=== PATIENT | male | born 1965 | race Caucasian/White ===

== ENCOUNTER 2017-05-17 15:00 | Emergency (ER) | payer BC ==
[~2017-05-17] VITALS: Ht 177.8 cm; Wt 147.7 kg
[~2017-05-17 15:00] MED LIST: ALTACE 5MG5 MG PO; AMITIZA24 MCG PO; ANUSOL-HC SUPPO25 MG RC; ASPIRIN 32325 MG/TAB PO; BACTRIM DS 8001 TAB PO; FLEXERIL 1010 MG/TAB PO; LIDODERM 5% PATC1 EA TP; LINZESS290CAP PO; LIORESAL 1010 MG/TAB PO; MS CONTIN 115 MG/TAB PO; NORCO 325 MG-101 TAB PO; NUCYNTA75 MG PO; NUVIGIL150 MG PO; OPANA ER10 MG PO; PRILOSEC 20MG20 MG PO; ROXICODONE 55 MG/TAB PO; TOPROL XL 50MG50 MG PO; ZANAFLEX CAPSULE2 MG PO; ZESTRIL30 MG PO
[2017-05-17 15:03] VITALS: TEMP 97.9
[2017-05-17 15:39] LABS: BASO # 0.1 (0.0-0.2); EOS # 0.5 (0.0-0.7); EOS % 5.1 % (0-4.0); GRAN # 8.2 (1.4-6.5); GRAN % 78.4 % (42.2-75.2); HEMATOCRIT 42.2 % (42.0-52.0); HEMOGLOBIN 13.8 g/dl (13.5-18.0); LYMPH % 9.6 % (20.0-51.0); MEAN CELL VOLUME 90 fl (80.0-100.0); MEAN CORPUSCULAR HEMOGLOBIN 30 pg (27.0-31.0); MEAN CORPUSCULAR HGB CONC 33 g/dl (33.0-37.0); MEAN PLATELET VOLUME 10.7 fl (7.4-10.4); MONO # 0.6 (0.1-0.6); MONO % 5.5 % (1.7-9.3); PLATELET COUNT 328 K/mm3 (130-400); RED BLOOD COUNT 4.67 M/mm3 (4.20-5.60); WHITE BLOOD COUNT 10.4 K/mm3 (4.8-10.8)
[2017-05-17 15:50] LABS: ADJUSTED CALCIUM 9.2 mg/dL (8.4-10.2); ALBUMIN 4.8 gm/dL (3.5-5.0); BILIRUBIN,TOTAL 0.7 mg/dL (0.0-1.0); CALCIUM 9.8 mg/dL (8.4-10.2); CREATININE, serum 0.67 mg/dL (0.66-1.25); POTASSIUM 4.1 mmol/L (3.4-5.0)
[2017-05-17 16:02] LABS: COLLECTION METHOD CLEAN CATCH
[2017-05-17 16:09] LABS: PH 6 (5-8); SQUAMOUS EPITHELIAL None Seen /hpf; URINE APPEARANCE Clear; URINE BACTERIA None Seen /hpf; URINE BILIRUBIN Negative (NEGATIVE); URINE BLOOD 2+ (NEGATIVE); URINE COLOR Straw; URINE GLUCOSE 3+ (NEGATIVE); URINE KETONE Trace (NEGATIVE); URINE LEUKOCYTE ESTERASE Negative (NEGATIVE); URINE PROTEIN(semi-quant) Negative (NEGATIVE); URINE RBC 0-2 /hpf; URINE UROBILINOGEN Negative (NEGATIVE); URINE WBC 0-2 /hpf
[2017-05-17] MEDS ORDERED: PRINIVIL10 MG PO (17:00)
[2017-05-17] MEDS ORDERED: GLUCOPHAGE500 MG/TAB PO (17:00)
[2017-05-17] MEDS ORDERED: ZITHROMAX 250M250 MG PO (17:00)
[2017-05-17] MEDS ORDERED: FREESTYLE PREC1 EAC5 MC (17:12)
[2017-05-17 18:50] VITALS: BP 175/93; PULSE 89
== END 2017-05-17 18:50 | disposition home or self-care (01) ==
LOC: COL.ER 15:00
PROVIDERS: Emergency Medicine
DX: J20.9 Acute bronchitis, unspecified (principal); E11.9 Type 2 diabetes mellitus without complications; I10 Essential (primary) hypertension
CPT/HCPCS: J1885; J7030

== ENCOUNTER 2017-05-25 17:01 | Emergency (ER) | payer SELFPAY ==
[~2017-05-25] VITALS: Ht 177.8 cm; Wt 147.7 kg
[~2017-05-25 17:01] MED LIST changes: +FREESTYLE PREC1 EAC5 MC; +GLUCOPHAGE500 MG/TAB PO; +GLUCOPHAGE850 MG/TAB PO; +PRINIVIL10 MG PO; +ZITHROMAX 250M250 MG PO
[2017-05-25 17:04] VITALS: BP 143/94; TEMP 97.7
[2017-05-25 18:13] LABS: BASO # 0.1 (0.0-0.2); BASO % 0.8 % (0.0-2.0); EOS # 0.5 (0.0-0.7); EOS % 5.4 % (0-4.0); GRAN # 5.9 (1.4-6.5); GRAN % 59.1 % (42.2-75.2); HEMATOCRIT 40.2 % (42.0-52.0); HEMOGLOBIN 13.2 g/dl (13.5-18.0); LYMPH % 29.8 % (20.0-51.0); MEAN CELL VOLUME 92 fl (80.0-100.0); MEAN CORPUSCULAR HEMOGLOBIN 30 pg (27.0-31.0); MEAN CORPUSCULAR HGB CONC 33 g/dl (33.0-37.0); MEAN PLATELET VOLUME 10.8 fl (7.4-10.4); MONO # 0.5 (0.1-0.6); MONO % 4.6 % (1.7-9.3); PLATELET COUNT 322 K/mm3 (130-400); RED BLOOD COUNT 4.37 M/mm3 (4.20-5.60); REDCELL DISTRIBUTION WIDTH-CV 13.4 % (11.5-14.5)
[2017-05-25] MEDS ORDERED: ADVIL200 MG PO (18:17)
[2017-05-25 18:22] LABS: ACETONE,SERUM NEGATIVE
[2017-05-25 18:27] LABS: ALANINE AMINOTRANSFERASE 33 U/L (21-72); ALBUMIN 4.7 gm/dL (3.5-5.0); ALKALINE PHOSPHATASE 112 U/L (50-136); ANION GAP 13 mmol/L (7-16); AST,SGOT 27 U/L (15-37); BILIRUBIN,TOTAL 0.4 mg/dL (0.0-1.0); BLOOD UREA NITROGEN 13 mg/dL (9-20); C-REACTIVE PROTEIN 1.2 mg/dL (0.0-0.9); CALCIUM 9.9 mg/dL (8.4-10.2); CARBON DIOXIDE 28 mmol/L (22-30); CHLORIDE 99 mmol/L (98-107); GLUCOSE 296 mg/dL (74-106); POTASSIUM 3.9 mmol/L (3.4-5.0); SODIUM 139 mmol/L (137-145); TOTAL PROTEIN 7.8 gm/dL (6.4-8.2)
[2017-05-25 18:29] LABS: INFLUENZA A NEGATIVE; INFLUENZA B NEGATIVE
[2017-05-25 18:56] LABS: ERYTHROCYTE SEDIMENTATION RATE 18 mm/hr (0-30)
[2017-05-25 19:24] VITALS: PULSE 91
[2017-05-26] MEDS ORDERED: ZITHROMAX Z PA250 MG PO (18:11)
[2017-05-26] MEDS ORDERED: GLUCOTROL XL5 MG/TAB PO (18:11)
[2017-05-26] MEDS ORDERED: REGLAN 5MG T5 MG/TAB PO (18:11)
== END 2017-05-25 19:27 | disposition home or self-care (01) ==
LOC: COL.ER 17:01
PROVIDERS: Emergency Medicine
DX: E11.65 Type 2 diabetes mellitus with hyperglycemia (principal); G43.909 Migraine, unspecified, not intractable, without status migrainosus; I10 Essential (primary) hypertension; F17.210 Nicotine dependence, cigarettes, uncomplicated; Z79.84 Long term (current) use of oral hypoglycemic drugs
CPT/HCPCS: J1170; J1815; J2405; J7030

== ENCOUNTER → 2017-05-27 | Outpatient (CLI) | payer SELFPAY ==
[~2017-05-27] MED LIST changes: +ADVIL200 MG PO; +GLUCOTROL XL5 MG/TAB PO; +REGLAN 5MG T5 MG/TAB PO; +ZITHROMAX Z PA250 MG PO
== END ==
LOC: SUN.DIA 11:48
DX: E11.40 Type 2 diabetes mellitus with diabetic neuropathy, unspecified (principal); I10 Essential (primary) hypertension; E66.9 Obesity, unspecified; Z68.41 Body mass index [BMI] 40.0-44.9, adult; Z71.3 Dietary counseling and surveillance; Z72.0 Tobacco use
CPT/HCPCS: G0108

== ENCOUNTER 2017-06-06 12:53 | Emergency (ER) | payer SELFPAY ==
[~2017-06-06] VITALS: Ht 177.8 cm; Wt 125.9 kg
[2017-06-06 13:07] VITALS: TEMP 97.8
[2017-06-06] MEDS ORDERED: TYLENOL PM EXTR1 TA1 PO (13:14)
[2017-06-06 18:24] VITALS: BP 151/92; PULSE 87
== END 2017-06-06 18:26 | disposition home or self-care (01) ==
LOC: COL.ER 12:53
DX: G43.909 Migraine, unspecified, not intractable, without status migrainosus (principal); I10 Essential (primary) hypertension; E11.9 Type 2 diabetes mellitus without complications; M79.7 Fibromyalgia; F17.220 Nicotine dependence, chewing tobacco, uncomplicated; Z79.84 Long term (current) use of oral hypoglycemic drugs
CPT/HCPCS: J0780; J1200; J1885; J7030

== ENCOUNTER → 2017-06-17 | Outpatient (CLI) | payer SELFPAY ==
[~2017-06-17] MED LIST changes: +TYLENOL PM EXTR1 TA1 PO
== END ==
LOC: SUN.DIA 06-03 12:20
DX: E11.40 Type 2 diabetes mellitus with diabetic neuropathy, unspecified (principal); Z79.4 Long term (current) use of insulin; I10 Essential (primary) hypertension; E66.9 Obesity, unspecified; Z68.41 Body mass index [BMI] 40.0-44.9, adult; Z71.3 Dietary counseling and surveillance; Z72.0 Tobacco use
CPT/HCPCS: G0108

== ENCOUNTER → 2017-07-01 | Outpatient (CLI) | payer SELFPAY ==
[~2017-07-01] MED LIST changes: +BASAGLAR K100 UNIT/1 SQ; +TESSALON P100 MG/CAP PO; +VENTOLIN0.09 MG IH; +ZESTRIL 20MG TA20 MG PO; +ZOFRAN ODT4 MG PO
== END ==
LOC: SUN.DIA 15:06
DX: E11.40 Type 2 diabetes mellitus with diabetic neuropathy, unspecified (principal); Z79.4 Long term (current) use of insulin; I10 Essential (primary) hypertension; E66.9 Obesity, unspecified; Z68.41 Body mass index [BMI] 40.0-44.9, adult; Z71.3 Dietary counseling and surveillance; Z72.0 Tobacco use
CPT/HCPCS: G0108

== ENCOUNTER 2017-07-05 20:47 | Emergency (ER) | payer SELFPAY ==
[~2017-07-05] VITALS: Ht 177.8 cm; Wt 134.1 kg
[~2017-07-05 20:47] MED LIST changes: -BASAGLAR K100 UNIT/1 SQ; -TESSALON P100 MG/CAP PO; -VENTOLIN0.09 MG IH; -ZESTRIL 20MG TA20 MG PO; -ZOFRAN ODT4 MG PO
[2017-07-05 20:53] VITALS: TEMP 100.4
[2017-07-05] MEDS ORDERED: GLUCOTROL XL5 MG/TAB PO (21:57)
[2017-07-05] MEDS ORDERED: TESSALON P100 MG/CAP PO (22:02)
[2017-07-05] MEDS ORDERED: ZOFRAN ODT4 MG PO (22:02)
[2017-07-05] MEDS ORDERED: VENTOLIN0.09 MG IH (22:03)
[2017-07-05] MEDS ORDERED: ZESTRIL 20MG TA20 MG PO (22:05)
[2017-07-05] MEDS ORDERED: BASAGLAR K100 UNIT/1 SQ (22:05)
[2017-07-05] MEDS ORDERED: GLUCOPHAGE500 MG/TAB PO (22:05)
[2017-07-05 22:32] VITALS: BP 132/82; PULSE 100
== END 2017-07-05 22:36 | disposition home or self-care (01) ==
LOC: COL.ER 20:47
DX: J11.1 Influenza due to unidentified influenza virus with other respiratory manifestations (principal); E11.9 Type 2 diabetes mellitus without complications; I10 Essential (primary) hypertension; J45.909 Unspecified asthma, uncomplicated; F17.210 Nicotine dependence, cigarettes, uncomplicated; Z79.4 Long term (current) use of insulin; Z98.890 Other specified postprocedural states

== ENCOUNTER → 2017-07-28 | Outpatient (CLI) | payer SELFPAY ==
[~2017-07-28] MED LIST changes: +BASAGLAR K100 UNIT/1 SQ; +TESSALON P100 MG/CAP PO; +VENTOLIN0.09 MG IH; +ZESTRIL 20MG TA20 MG PO; +ZOFRAN ODT4 MG PO
== END ==
LOC: SUN.DIA 15:38
DX: E11.40 Type 2 diabetes mellitus with diabetic neuropathy, unspecified (principal); Z79.4 Long term (current) use of insulin; I10 Essential (primary) hypertension; E66.9 Obesity, unspecified; Z68.41 Body mass index [BMI] 40.0-44.9, adult; Z71.3 Dietary counseling and surveillance; Z72.0 Tobacco use
CPT/HCPCS: G0108

== ENCOUNTER 2017-08-06 07:26 | Emergency (ER) | payer SELFPAY ==
[~2017-08-06] VITALS: Ht 177.8 cm; Wt 130.5 kg
[2017-08-06 07:29] VITALS: TEMP 98
[2017-08-06] MEDS ORDERED: ZANAFLEX 4MG TAB4 MG PO (08:13)
[2017-08-06 10:12] VITALS: BP 126/90; PULSE 91
== END 2017-08-06 10:15 | disposition home or self-care (01) ==
LOC: COL.ER 07:26
DX: R51 Headache (principal); I10 Essential (primary) hypertension; E11.9 Type 2 diabetes mellitus without complications; F17.210 Nicotine dependence, cigarettes, uncomplicated; Z79.4 Long term (current) use of insulin
CPT/HCPCS: J1100; J1200; J1885; J2550

== ENCOUNTER → 2017-09-08 | Outpatient (CLI) | payer OTHER ==
[~2017-09-08] MED LIST changes: +ZANAFLEX 4MG TAB4 MG PO
== END ==
LOC: MHCPAIN 10:18
DX: G89.29 Other chronic pain (principal); M47.817 Spondylosis without myelopathy or radiculopathy, lumbosacral region; M50.90 Cervical disc disorder, unspecified, unspecified cervical region; M79.2 Neuralgia and neuritis, unspecified
CPT/HCPCS: G0463

== ENCOUNTER → 2017-12-23 | Outpatient (CLI) | payer OTHER | LOC: COL.LAB 12:12 | DX: Z53.8 Procedure and treatment not carried out for other reasons (principal) ==

== ENCOUNTER → 2017-12-24 | Outpatient (CLI) | payer OTHER ==
[2017-12-24 07:30] LABS: COLLECTION METHOD CLEAN CATCH
[2017-12-24 07:34] LABS: HEMATOCRIT 43.8 % (42.0-52.0); HEMOGLOBIN 14.3 g/dl (13.5-18.0); MEAN CELL VOLUME 90 fl (80.0-100.0); MEAN CORPUSCULAR HEMOGLOBIN 29 pg (27.0-31.0); MEAN CORPUSCULAR HGB CONC 33 g/dl (33.0-37.0); MEAN PLATELET VOLUME 9.8 fl (7.4-10.4); PLATELET COUNT 347 K/mm3 (130-400); RED BLOOD COUNT 4.88 M/mm3 (4.20-5.60); REDCELL DISTRIBUTION WIDTH-CV 14.2 % (11.5-14.5)
[2017-12-24 07:37] LABS: MUCOUS Present /lpf; PH 5 (5-8); SQUAMOUS EPITHELIAL None Seen /hpf; URINE APPEARANCE Clear; URINE BACTERIA None Seen /hpf; URINE BILIRUBIN Negative (NEGATIVE); URINE BLOOD 1+ (NEGATIVE); URINE GLUCOSE Negative (NEGATIVE); URINE KETONE Negative (NEGATIVE); URINE LEUKOCYTE ESTERASE Negative (NEGATIVE); URINE NITRATE Negative (NEGATIVE); URINE PROTEIN(semi-quant) 1+ (NEGATIVE); URINE UROBILINOGEN Negative (NEGATIVE); URINE WBC 0-2 /hpf
[2017-12-24 07:41] LABS: URINE COLOR Yellow
[2017-12-24 07:52] LABS: ALBUMIN 4.2 gm/dL (3.5-5.0); BILIRUBIN,TOTAL 0.5 mg/dL (0.0-1.0); CHOLESTEROL RISK RATIO 7.6; CREATININE, serum 0.73 mg/dL (0.66-1.25); POTASSIUM 3.9 mmol/L (3.4-5.0); TOTAL PROTEIN 7.4 gm/dL (6.4-8.2)
[2017-12-24 08:39] LABS: PSA-TOTAL 0.56 ng/mL (0-4)
== END ==
LOC: COL.LAB 07:04
DX: E11.9 Type 2 diabetes mellitus without complications (principal); I10 Essential (primary) hypertension
CPT/HCPCS: G0103

== ENCOUNTER → 2017-12-30 | Outpatient (CLI) | payer SELFPAY | LOC: SUN.DIA → COL.LAB 11:42 | DX: R05 Cough (principal); Z53.9 Procedure and treatment not carried out, unspecified reason ==

== ENCOUNTER → 2018-01-22 | Outpatient (CLI) | payer SELFPAY | LOC: COL.RAD 10:43 | DX: R05 Cough (principal) ==

== ENCOUNTER → 2018-02-11 | Outpatient (CLI) | payer OTHER | LOC: COL.VAS 08:45 | DX: R06.09 Other forms of dyspnea (principal); R01.1 Cardiac murmur, unspecified; R60.9 Edema, unspecified ==

== ENCOUNTER → 2018-05-27 | Outpatient (CLI) | payer SELFPAY ==
[2018-05-27 11:29] LABS: COLLECTION METHOD CLEAN CATCH
[2018-05-27 11:35] LABS: HEMATOCRIT 44.9 % (42.0-52.0); HEMOGLOBIN 14.7 g/dl (13.5-18.0); MEAN CELL VOLUME 92 fl (80.0-100.0); MEAN CORPUSCULAR HEMOGLOBIN 30 pg (27.0-31.0); MEAN CORPUSCULAR HGB CONC 33 g/dl (33.0-37.0); MEAN PLATELET VOLUME 10.3 fl (7.4-10.4); PLATELET COUNT 354 K/mm3 (130-400); REDCELL DISTRIBUTION WIDTH-CV 14.6 % (11.5-14.5)
[2018-05-27 11:43] LABS: MUCOUS Present /lpf; PH 8 (5-8); SQUAMOUS EPITHELIAL None Seen /hpf; URINE APPEARANCE Clear; URINE BACTERIA None Seen /hpf; URINE BILIRUBIN Negative (NEGATIVE); URINE BLOOD Negative (NEGATIVE); URINE COLOR Yellow; URINE GLUCOSE Negative (NEGATIVE); URINE KETONE Negative (NEGATIVE); URINE LEUKOCYTE ESTERASE Negative (NEGATIVE); URINE NITRATE Negative (NEGATIVE); URINE PROTEIN(semi-quant) Negative (NEGATIVE); URINE UROBILINOGEN Negative (NEGATIVE); URINE WBC 0-2 /hpf
[2018-05-27 11:49] LABS: ALBUMIN 4.5 gm/dL (3.5-5.0); BILIRUBIN,TOTAL 0.4 mg/dL (0.0-1.0); CALCIUM 9.4 mg/dL (8.4-10.2); CHOLESTEROL RISK RATIO 7.6; CREATININE, serum 0.78 mg/dL (0.66-1.25); POTASSIUM 3.8 mmol/L (3.4-5.0)
[2018-05-27 12:19] LABS: PSA-TOTAL 1.5 ng/mL (0-4)
== END ==
LOC: COL.LAB 10:38
PROVIDERS: Nurse Practitioner Family
DX: I10 Essential (primary) hypertension (principal); E11.9 Type 2 diabetes mellitus without complications; R60.0 Localized edema
CPT/HCPCS: G0103

== ENCOUNTER 2018-06-02 13:52 | Emergency (ER) | payer SELFPAY ==
[~2018-06-02] VITALS: Ht 177.8 cm; Wt 136.4 kg
[~2018-06-02 13:52] MED LIST changes: -CYMBALTA 60MG60 MG PO; -NEURONTIN800 MG/TAB PO; -RT ALBUTER2.5 MG/0.5 IH
[2018-06-02 14:03] VITALS: TEMP 98.7
[2018-06-02 15:02] LABS: BASO # 0.1 (0.0-0.2); BASO % 0.7 % (0.0-2.0); EOS # 0.5 (0.0-0.7); EOS % 4.9 % (0-4.0); GRAN # 6.2 (1.4-6.5); GRAN % 57.4 % (42.2-75.2); HEMOGLOBIN 15.1 g/dl (13.5-18.0); LYMPH # 3.2 (1.2-3.4); LYMPH % 29.8 % (20.0-51.0); MEAN CELL VOLUME 91 fl (80.0-100.0); MEAN CORPUSCULAR HEMOGLOBIN 30 pg (27.0-31.0); MEAN CORPUSCULAR HGB CONC 33 g/dl (33.0-37.0); MONO # 0.7 (0.1-0.6); MONO % 6.8 % (1.7-9.3); PLATELET COUNT 344 K/mm3 (130-400); RED BLOOD COUNT 5.05 M/mm3 (4.20-5.60); REDCELL DISTRIBUTION WIDTH-CV 14.6 % (11.5-14.5)
[2018-06-02] MEDS ORDERED: NEURONTIN800 MG/TAB PO (15:02)
[2018-06-02] MEDS ORDERED: CYMBALTA 60MG60 MG PO (15:03)
[2018-06-02 15:14] LABS: ALBUMIN 4.6 gm/dL (3.5-5.0); BILIRUBIN,TOTAL 0.4 mg/dL (0.0-1.0); CALCIUM 9.5 mg/dL (8.4-10.2); CREATININE, serum 0.94 mg/dL (0.66-1.25); POTASSIUM 3.9 mmol/L (3.4-5.0); TOTAL PROTEIN 8.2 gm/dL (6.4-8.2)
[2018-06-02] MEDS ORDERED: ZITHROMAX Z PA250 MG PO (15:51)
[2018-06-02] MEDS ORDERED: RT ALBUTER2.5 MG/0.5 IH (15:51)
[2018-06-02 16:00] VITALS: BP 139/77; PULSE 96
== END 2018-06-02 16:09 | disposition home or self-care (01) ==
LOC: COL.ER 13:52
PROVIDERS: Physician Assistant
DX: J20.9 Acute bronchitis, unspecified (principal); E11.9 Type 2 diabetes mellitus without complications; F17.210 Nicotine dependence, cigarettes, uncomplicated; Z79.4 Long term (current) use of insulin; Z88.5 Allergy status to narcotic agent; J45.909 Unspecified asthma, uncomplicated

== ENCOUNTER → 2018-06-02 | Outpatient (CLI) | payer SELFPAY ==
[~2018-06-02] MED LIST changes: +CYMBALTA 60MG60 MG PO; +NEURONTIN800 MG/TAB PO; +RT ALBUTER2.5 MG/0.5 IH
== END ==
LOC: MHCPAIN 11:46
DX: G89.29 Other chronic pain (principal); M54.12 Radiculopathy, cervical region; M47.812 Spondylosis without myelopathy or radiculopathy, cervical region; R51 Headache; M54.81 Occipital neuralgia; M79.2 Neuralgia and neuritis, unspecified
CPT/HCPCS: G0463

== ENCOUNTER → 2018-06-24 | Outpatient (CLI) | payer SELFPAY ==
[~2018-06-24] MED LIST changes: +CYMBALTA 60MG60 MG PO; +NEURONTIN800 MG/TAB PO; +RT ALBUTER2.5 MG/0.5 IH
== END ==
LOC: COL.RAD 10:09
DX: R05 Cough (principal); R06.02 Shortness of breath
CPT/HCPCS: Q9967

== ENCOUNTER 2018-07-19 06:31 | Emergency (ER) | payer SELFPAY | END 2018-07-19 08:41 | disposition home or self-care (01) | LOC: COL.ER 06:31 | DX: R07.89 Other chest pain (principal); I10 Essential (primary) hypertension; E11.9 Type 2 diabetes mellitus without complications; J44.9 Chronic obstructive pulmonary disease, unspecified; F17.210 Nicotine dependence, cigarettes, uncomplicated ==

== ENCOUNTER 2018-07-20 02:17 | Emergency (ER) | payer SELFPAY ==
[~2018-07-20] VITALS: Ht 177.8 cm; Wt 138.2 kg
[~2018-07-20 02:17] MED LIST changes: +PREDNISONE20 MG PO; +PRINIVIL20 MG PO; +PROAIR HFA0.09 MG/AC IH
[2018-07-20 02:22] VITALS: TEMP 97.2
[2018-07-20] MEDS ORDERED: RT ALBUTER2.5 MG/0.5 IH (02:27)
[2018-07-20] MEDS ORDERED: GLUCOPHAGE500 MG/TAB PO (02:27)
[2018-07-20] MEDS ORDERED: ULTRAM 50MG TAB50 MG PO (02:28)
[2018-07-20] MEDS ORDERED: FLEXERIL 1010 MG/TAB PO (03:17)
[2018-07-20] MEDS ORDERED: NORCO 325 MG-51 TAB PO (03:17)
[2018-07-20] MEDS ORDERED: ZITHROMAX 250M250 MG PO (03:29)
[2018-07-20 04:40] VITALS: BP 157/104; PULSE 93
== END 2018-07-20 04:50 | disposition home or self-care (01) ==
LOC: COL.ER 02:17
DX: S29.011A Strain of muscle and tendon of front wall of thorax, initial encounter (principal); E11.9 Type 2 diabetes mellitus without complications; J44.9 Chronic obstructive pulmonary disease, unspecified; Z79.4 Long term (current) use of insulin; X50.0XXA Overexertion from strenuous movement or load, initial encounter
CPT/HCPCS: J1885; J8540

== ENCOUNTER 2018-07-27 21:27 | Emergency (ER) | payer SELFPAY ==
[~2018-07-27] VITALS: Ht 175.3 cm; Wt 138.2 kg
[~2018-07-27 21:27] MED LIST changes: +NORCO 325 MG-51 TAB PO; +ULTRAM 50MG TAB50 MG PO
[2018-07-27 21:35] VITALS: BP 170/78; TEMP 97.7
[2018-07-28 00:40] LABS: BASO # 0.1 (0.0-0.2); BASO % 0.8 % (0.0-2.0); EOS # 0.3 (0.0-0.7); EOS % 3.9 % (0-4.0); GRAN # 4.1 (1.4-6.5); GRAN % 62.6 % (42.2-75.2); HEMATOCRIT 37.9 % (42.0-52.0); HEMOGLOBIN 12.4 g/dl (13.5-18.0); LYMPH # 1.6 (1.2-3.4); LYMPH % 24.7 % (20.0-51.0); MEAN CELL VOLUME 93 fl (80.0-100.0); MEAN CORPUSCULAR HEMOGLOBIN 30 pg (27.0-31.0); MEAN CORPUSCULAR HGB CONC 33 g/dl (33.0-37.0); MEAN PLATELET VOLUME 9.9 fl (7.4-10.4); MONO # 0.5 (0.1-0.6); MONO % 7.4 % (1.7-9.3); PLATELET COUNT 303 K/mm3 (130-400); RED BLOOD COUNT 4.09 M/mm3 (4.20-5.60); REDCELL DISTRIBUTION WIDTH-CV 14.7 % (11.5-14.5)
[2018-07-28 01:04] LABS: ALANINE AMINOTRANSFERASE 18 U/L (21-72); ALKALINE PHOSPHATASE 78 U/L (50-136); ANION GAP 10 mmol/L (7-16); AST,SGOT 27 U/L (15-37); BILIRUBIN,TOTAL 0.2 mg/dL (0.0-1.0); BLOOD UREA NITROGEN 17 mg/dL (9-20); CALCIUM 9.8 mg/dL (8.4-10.2); CARBON DIOXIDE 26 mmol/L (22-30); CHLORIDE 99 mmol/L (98-107); CREATININE, serum 0.95 mg/dL (0.66-1.25); GLUCOSE 152 mg/dL (74-106); POTASSIUM 3.7 mmol/L (3.4-5.0); SODIUM 134 mmol/L (137-145); TOTAL PROTEIN 7.2 gm/dL (6.4-8.2)
[2018-07-28 01:15] LABS: TROPONIN-I < 0.012 ng/mL (0.000-0.035)
[2018-07-28] MEDS ORDERED: NORCO 325 MG-51 TAB PO (02:58)
[2018-07-28] MEDS ORDERED: FLEXERIL 1010 MG/TAB PO (02:58)
[2018-07-28] MEDS ORDERED: TESSALON P100 MG/CAP PO (02:58)
[2018-07-28 03:34] VITALS: PULSE 87
== END 2018-07-28 03:37 | disposition home or self-care (01) ==
LOC: COL.ER 21:27
PROVIDERS: Emergency Medicine
DX: S22.31XA Fracture of one rib, right side, initial encounter for closed fracture (principal); R05 Cough; M79.7 Fibromyalgia; G43.909 Migraine, unspecified, not intractable, without status migrainosus; E11.9 Type 2 diabetes mellitus without complications; Z79.84 Long term (current) use of oral hypoglycemic drugs; X58.XXXA Exposure to other specified factors, initial encounter
CPT/HCPCS: J1885; Q9967

== ENCOUNTER 2018-08-03 18:55 | Emergency (ER) | payer SELFPAY ==
[~2018-08-03] VITALS: Ht 177.8 cm; Wt 137.7 kg
[2018-08-03 19:17] VITALS: TEMP 98
[2018-08-03] MEDS ORDERED: MEDROL 4MG DOSPA4 MG PO (22:22)
[2018-08-03] MEDS ORDERED: ALBUTEROL0.83 MG/ML IH (22:32)
[2018-08-03 22:49] VITALS: BP 158/93; PULSE 95
== END 2018-08-03 23:00 | disposition home or self-care (01) ==
LOC: COL.ER 18:55
DX: J44.9 Chronic obstructive pulmonary disease, unspecified (principal); I10 Essential (primary) hypertension; F17.210 Nicotine dependence, cigarettes, uncomplicated; Z79.84 Long term (current) use of oral hypoglycemic drugs; Z88.5 Allergy status to narcotic agent

== ENCOUNTER 2019-05-10 16:23 | Emergency (ER) | payer MEDICARE, MEDICAID ==
[~2019-05-10] VITALS: Ht 177.8 cm; Wt 127.3 kg
[~2019-05-10 16:23] MED LIST changes: +ALBUTEROL0.83 MG/ML IH; +MEDROL 4MG DOSPA4 MG PO
[2019-05-10 16:30] VITALS: BP 144/86; TEMP 97.9
[2019-05-10] MEDS ORDERED: HYZAAR 50-12.1 UDTAB (16:45)
[2019-05-10] MEDS ORDERED: NUVIGIL150 MG (16:46)
[2019-05-10 17:28] LABS: BASO # 0.1 (0.0-0.2); BASO % 0.6 % (0.0-2.0); EOS # 0.5 (0.0-0.7); HEMATOCRIT 39.4 % (42.0-52.0); HEMOGLOBIN 12.6 g/dl (13.5-18.0); LYMPH # 2.6 (1.2-3.4); MEAN CELL VOLUME 93 fl (80.0-100.0); MEAN CORPUSCULAR HEMOGLOBIN 30 pg (27.0-31.0); MEAN CORPUSCULAR HGB CONC 32 g/dl (33.0-37.0); MEAN PLATELET VOLUME 9.9 fl (7.4-10.4); MONO # 0.7 (0.1-0.6); PLATELET COUNT 363 K/mm3 (130-400); RED BLOOD COUNT 4.25 M/mm3 (4.20-5.60); REDCELL DISTRIBUTION WIDTH-CV 14.7 % (11.5-14.5)
[2019-05-10 17:49] LABS: CALCIUM 9.7 mg/dL (8.4-10.2); CREATININE, serum 0.87 (0.66-1.25); POTASSIUM 3.8 mmol/L (3.4-5.0)
[2019-05-10] MEDS ORDERED: NORCO 325 MG-51 TAB PO (19:15)
[2019-05-10 19:41] VITALS: PULSE 88
== END 2019-05-10 19:41 | disposition home or self-care (01) ==
LOC: COL.ER 16:23
PROVIDERS: Emergency Medicine
DX: S40.012A Contusion of left shoulder, initial encounter (principal); S30.1XXA Contusion of abdominal wall, initial encounter; I10 Essential (primary) hypertension; J45.909 Unspecified asthma, uncomplicated; G43.909 Migraine, unspecified, not intractable, without status migrainosus; E11.9 Type 2 diabetes mellitus without complications; M79.7 Fibromyalgia; Y04.8XXA Assault by other bodily force, initial encounter; Y92.009 Unspecified place in unspecified non-institutional (private) residence as the place of occurrence of the external cause
CPT/HCPCS: J2060; J7030; Q9967

== ENCOUNTER 2019-05-14 21:48 | Emergency (ER) | payer MEDICARE, MEDICAID ==
[~2019-05-14] VITALS: Ht 177.8 cm; Wt 127.3 kg
[~2019-05-14 21:48] MED LIST changes: +HYZAAR 50-12.1 UDTAB; +NUVIGIL150 MG
[2019-05-14 21:52] VITALS: BP 182/99; TEMP 97.5
[2019-05-14] MEDS ORDERED: LIDODERM 5% PATC1 EA TP (23:31)
[2019-05-14] MEDS ORDERED: FLEXERIL 1010 MG/TAB PO (23:31)
[2019-05-15 00:25] VITALS: PULSE 90
== END 2019-05-15 00:25 | disposition home or self-care (01) ==
LOC: COL.ER 21:48
DX: S30.1XXA Contusion of abdominal wall, initial encounter (principal); M25.512 Pain in left shoulder; M79.7 Fibromyalgia; M62.838 Other muscle spasm; E11.9 Type 2 diabetes mellitus without complications; G43.909 Migraine, unspecified, not intractable, without status migrainosus; Z79.4 Long term (current) use of insulin; F17.210 Nicotine dependence, cigarettes, uncomplicated; Y09 Assault by unspecified means
CPT/HCPCS: J1885

== ENCOUNTER → 2019-11-29 | Outpatient (CLI) | payer MEDICARE, MEDICAID | LOC: ZCOL.LAB 17:07 | DX: R19.7 Diarrhea, unspecified (principal); R43.0 Anosmia; R53.83 Other fatigue; Z20.828 Contact with and (suspected) exposure to other viral communicable diseases ==

== ENCOUNTER 2020-05-24 14:11 | Emergency (ER) | payer MEDICARE, MEDICAID ==
[~2020-05-24] VITALS: Ht 177.8 cm; Wt 111.4 kg
[2020-05-24 14:14] VITALS: TEMP 97.6
[2020-05-24 15:14] LABS: BASO # 0.1 (0.0-0.2); BASO % 0.5 % (0.0-2.0); EOS # 0.1 (0.0-0.7); EOS % 0.7 % (0-4.0); GRAN % 84.5 % (42.2-75.2); HEMATOCRIT 41.9 % (42.0-52.0); HEMOGLOBIN 13.5 g/dl (13.5-18.0); LYMPH # 1.4 (1.2-3.4); LYMPH % 9.7 % (20.0-51.0); MEAN CELL VOLUME 91 fl (80.0-100.0); MEAN CORPUSCULAR HEMOGLOBIN 29 pg (27.0-31.0); MEAN CORPUSCULAR HGB CONC 32 g/dl (33.0-37.0); MEAN PLATELET VOLUME 9.8 fl (7.4-10.4); MONO # 0.6 (0.1-0.6); MONO % 4.2 % (1.7-9.3); PLATELET COUNT 355 K/mm3 (130-400); RED BLOOD COUNT 4.63 M/mm3 (4.20-5.60)
[2020-05-24 15:23] LABS: ALBUMIN 4.1 gm/dL (3.5-5.0); BILIRUBIN,TOTAL 0.3 mg/dL (0.0-1.0); C-REACTIVE PROTEIN 1.1 mg/dL (0.0-0.9); CREATININE, serum 0.87 (0.66-1.25); POTASSIUM 4.1 mmol/L (3.4-5.0); TOTAL PROTEIN 7.3 gm/dL (6.4-8.2)
[2020-05-24 15:47] LABS: COLLECTION METHOD CLEAN CATCH
[2020-05-24 16:00] VITALS: BP 169/95; PULSE 90
[2020-05-24 16:03] LABS: AMORPHOUS CRYSTAL Present /uL; MUCOUS Present /lpf; PH 7 (5-8); SQUAMOUS EPITHELIAL None Seen /hpf; URINE APPEARANCE Cloudy; URINE BACTERIA None Seen /hpf; URINE BILIRUBIN Negative (NEGATIVE); URINE BLOOD Negative (NEGATIVE); URINE COLOR Yellow; URINE GLUCOSE Negative (NEGATIVE); URINE KETONE Negative (NEGATIVE); URINE LEUKOCYTE ESTERASE Negative (NEGATIVE); URINE NITRATE Negative (NEGATIVE); URINE PROTEIN(semi-quant) Negative (NEGATIVE); URINE RBC 0-2 /hpf; URINE UROBILINOGEN Negative (NEGATIVE)
== END 2020-05-24 19:00 | disposition home or self-care (01) ==
LOC: COL.ER 14:11 → EDBD 14:12 → COL.ER 19:00
PROVIDERS: Family Medicine
DX: K43.9 Ventral hernia without obstruction or gangrene (principal); E66.9 Obesity, unspecified; F17.200 Nicotine dependence, unspecified, uncomplicated; Z68.35 Body mass index [BMI] 35.0-35.9, adult; Z88.6 Allergy status to analgesic agent
CPT/HCPCS: Q9967

== ENCOUNTER 2020-11-03 14:15 | Inpatient (IN) | payer MEDICARE, MEDICAID ==
[~2020-11-03] VITALS: Ht 180.3 cm; Wt 109.9 kg
[2020-11-03 15:37] LABS: COLLECTION METHOD CLEAN CATCH
[2020-11-03 15:40] LABS: BASO # 0.1 (0.0-0.2); BASO % 0.4 % (0.0-2.0); EOS # 0.1 (0.0-0.7); EOS % 0.5 % (0-4.0); GRAN # 9.9 (1.4-6.5); GRAN % 81.4 % (42.2-75.2); HEMATOCRIT 39.7 % (42.0-52.0); HEMOGLOBIN 13.1 g/dl (13.5-18.0); LYMPH # 1.3 (1.2-3.4); LYMPH % 10.3 % (20.0-51.0); MEAN CELL VOLUME 88 fl (80.0-100.0); MEAN CORPUSCULAR HEMOGLOBIN 29 pg (27.0-31.0); MEAN CORPUSCULAR HGB CONC 33 g/dl (33.0-37.0); MEAN PLATELET VOLUME 9.9 fl (7.4-10.4); MONO # 0.9 (0.1-0.6); PLATELET COUNT 327 K/mm3 (130-400); RED BLOOD COUNT 4.51 M/mm3 (4.20-5.60); REDCELL DISTRIBUTION WIDTH-CV 13.7 % (11.5-14.5)
[2020-11-03 15:43] LABS: PH 7 (5-8); SQUAMOUS EPITHELIAL None Seen /hpf; URINE APPEARANCE Clear; URINE BACTERIA None Seen /hpf; URINE BILIRUBIN Negative (NEGATIVE); URINE BLOOD 1+ (NEGATIVE); URINE COLOR Straw; URINE GLUCOSE Negative (NEGATIVE); URINE KETONE Negative (NEGATIVE); URINE LEUKOCYTE ESTERASE Negative (NEGATIVE); URINE NITRATE Negative (NEGATIVE); URINE PROTEIN(semi-quant) Negative (NEGATIVE); URINE UROBILINOGEN Negative (NEGATIVE)
[2020-11-03 16:00] LABS: ALBUMIN 3.6 gm/dL (3.5-5.0); BILIRUBIN,TOTAL 0.2 mg/dL (0.0-1.0); CREATININE, serum 1.03 (0.66-1.25); POTASSIUM 3.3 mmol/L (3.4-5.0); TOTAL PROTEIN 6.9 gm/dL (6.4-8.2)
[2020-11-03 16:13] LABS: TROPONIN-I 0.062 ng/mL (0.000-0.035)
[2020-11-03 16:23] LABS: C-REACTIVE PROTEIN 3.5 mg/dL (0.0-0.9)
[2020-11-03 17:08] LABS: PROTHROMBIN TIME 11.1 SECONDS (9.7-12.8)
--- NOTE | 2020-11-03 21:23 | NUR ---
PATIENT ARRIVED TO UNITS FROM ED AROUND 2109. ALERT AND ORIENTEDX 4. C/O ABDOMINAL PAIN 01/01. DENIES NAUSEA/VOMITING. IV TO R AC INFUSING NS. ORIENTED TO ROOM, CALL LIGHT WITHING REACH, BED IN LOW POSITION AND LOCK.
[2020-11-03 21:34] VITALS: BP 166/73; PULSE 82; TEMP 99.8
[2020-11-04] VITALS (12 sets, daily range): BP systolic 113–183; BP diastolic 66–92; PULSE 71–91; TEMP 97.8–98.8
--- NOTE | 2020-11-04 01:28 | NUR ---
Vancomycin Initial Dosing Pharmacy Note Ordering provider: Jerome Fernandez MD Indication/duration: DM foot ulcer\concern for MRSA - 5 days Relevant comorbidities: DM, HTN LABS: WBC = 12.2, T = 99.4 F, SCr = 1.03 Recommendation: Will draw troughs and follow levels. Loading dose: 2 grams Maintenance dose: 1.25 grams every 12 hours Trough goal: 10-15 ug/mL
[2020-11-04 06:28] LABS: BASO # 0.1 (0.0-0.2); BASO % 0.5 % (0.0-2.0); EOS # 0.1 (0.0-0.7); EOS % 0.7 % (0-4.0); GRAN # 8.2 (1.4-6.5); GRAN % 77.1 % (42.2-75.2); HEMATOCRIT 39.8 % (42.0-52.0); HEMOGLOBIN 13.1 g/dl (13.5-18.0); LYMPH # 1.5 (1.2-3.4); LYMPH % 14.1 % (20.0-51.0); MEAN CELL VOLUME 88 fl (80.0-100.0); MEAN CORPUSCULAR HEMOGLOBIN 29 pg (27.0-31.0); MEAN CORPUSCULAR HGB CONC 33 g/dl (33.0-37.0); MONO # 0.7 (0.1-0.6); PLATELET COUNT 319 K/mm3 (130-400); RED BLOOD COUNT 4.51 M/mm3 (4.20-5.60); REDCELL DISTRIBUTION WIDTH-CV 13.9 % (11.5-14.5)
[2020-11-04 06:37] LABS: CREATININE, serum 0.89 (0.66-1.25); POTASSIUM 3.8 mmol/L (3.4-5.0)
[2020-11-04 07:01] LABS: MAGNESIUM 2.2 mg/dL (1.6-2.3)
[2020-11-04 07:21] LABS: TROPONIN-I 0.056 ng/mL (0.000-0.035)
--- NOTE | 2020-11-04 10:43 | NUR ---
D/C Plan: Sw to assist with obtaining halfway needs. Assessment: Sw met with the pt who stated his preference to return home? once medically stable. Pt is currently homeless and lives in his car/tent. Pt is independent on all his ADLs and uses a cane. Pt PCP is Logan Guillaume and [facility] is [facility] and the pt stated that he sometimes has trouble obtaining his medications. Pt does not have a DPOA-HC and is not interested in making one at this time. The pt next of Kin is his son, Pipe Terrell (ph#: [phone]). Pt is possibly having a procedure 11/05 and once discharge pt will need shipping and receiving assistant with obtaining halfway/resources.
--- NOTE | 2020-11-04 15:16 | NUR ---
Pt off the floor for surgery
--- NOTE | 2020-11-04 16:44 | NUR ---
Pt has arrived back to the floor from OR. He is alert and oriented, steady on his feet. He has voided with no difficulty. VSS, ordered him some dinner
--- NOTE | 2020-11-04 18:09 | NUR ---
Pt has had and tolerated a general diet. He asked about going outside to smoke. Informed him that we do not allow smoking on the hospital grounds. He stated that he was going to just check himself out. Informed him that I did not feel that this would be the best choice. Offered him a nicotine patch which he accepted. Pt then asked to go for a walk in the halls. Told him that he would need to stay on the 3rd floor.
--- NOTE | 2020-11-04 19:45 | NUR ---
Called with c/o pain. Rating pain 9/10 to abdomen descirbed as constant ache with sharp intermittent pains. Dilaudid given per dr order. Will monitor.
--- NOTE | 2020-11-04 20:10 | NUR ---
Report received, assumed care for night guard. Assessment complete. A&Ox3. Rating pain 9/10 to abdomen-described as constant ache/throb-dilaudid given per order. Discussed plan of care-HS meds/calling for questions/concerns/pain control/nausea. Verbalizes understanding. Will continue to monitor.
--- NOTE | 2020-11-04 20:40 | NUR ---
Came to desk with reports of "a lot of blood in the toilet." This nurse to room and visualized bright red blood in toilet. States he was trying to have a bowel movement and was pushing and when got up he had bleeding. Denies urinating. States he doesnt believe he is constipated but states he hasnt had a BM in "days." Denies flatus. This nurse examined rectal area and noted several external hemorrhoids with active bleeding. Hospitalist-SONIYA Diane notified and new orders received to start bowel regimen. Orders also intiated for hermorrhoid care. Verbalizes understanding. Will continue to monitor.
--- NOTE | 2020-11-04 22:53 | NUR ---
Called with c/o pain to abdomen as well as nausea. Rating pain 7/10 on pain scale-described as constant throbbing/ache. Spoke with Hospitalist SONIYA Diane. New orders received for phenergan-pt states zofran did not work. Given at this time. WIll monitor.
[2020-11-05] VITALS (11 sets, daily range): BP systolic 114–179; BP diastolic 58–88; PULSE 80–96; TEMP 98.1–98.6
--- NOTE | 2020-11-05 00:50 | NUR ---
Called with c/o pain to middle abdomen-rating pain 8/10 on pain scale-described as constant ache with intermittent throbbing. Dilaudid given per dr crum.
--- NOTE | 2020-11-05 00:54 | NUR ---
IV was pulled out during bathroom break. New IV placed to left hand-22g-x2 attempts.
--- NOTE | 2020-11-05 01:20 | NUR ---
During VS verification noted to have BP of 179/87-verified manually. Hydralazine PRN order given at this time. Will monitor.
--- NOTE | 2020-11-05 03:50 | NUR ---
Called with c/o pain to abdomen. Rating pain 8/10 to abdomen-described as constant ache with intermittent throbbing. Dilaudid given per dr order. Will monitor.
--- NOTE | 2020-11-05 06:29 | NUR ---
Called with c/o of pain to mid abdomen-rating pain 8/10 on pain scale-described as constant throbbing. Dilaudid given per dr crum. Will continue to monitor.
[2020-11-05 06:57] LABS: CALCIUM 8.8 mg/dL (8.4-10.2); CREATININE, serum 1.3 (0.66-1.25); MAGNESIUM 2.1 mg/dL (1.6-2.3); POTASSIUM 4.4 mmol/L (3.4-5.0)
[2020-11-05 07:00] LABS: BASO % 0.1 % (0.0-2.0); HEMATOCRIT 37.8 % (42.0-52.0); HEMOGLOBIN 12.6 g/dl (13.5-18.0); LYMPH # 1.1 (1.2-3.4); LYMPH % 6.7 % (20.0-51.0); MEAN CELL VOLUME 88 fl (80.0-100.0); MEAN CORPUSCULAR HEMOGLOBIN 29 pg (27.0-31.0); MEAN CORPUSCULAR HGB CONC 33 g/dl (33.0-37.0); MEAN PLATELET VOLUME 9.9 fl (7.4-10.4); MONO # 0.6 (0.1-0.6); MONO % 3.6 % (1.7-9.3); PLATELET COUNT 323 K/mm3 (130-400); RED BLOOD COUNT 4.28 M/mm3 (4.20-5.60); REDCELL DISTRIBUTION WIDTH-CV 13.7 % (11.5-14.5)
--- NOTE | 2020-11-05 08:10 | NUR ---
PT HAS FLAT AFFECT, REPORTS PAIN IN ABD 7/10, WANTS PAIN MEDICATION LATER. EDUCATED TO USE CALL LIGHT WHEN PAIN MEDICATION NEEDED. PT AMBULATING IN THE ROOM, STEADY ON FEET, REPORTS PASSING GAS BUT NOT HAVING A BM FOR 4 DAYS, HAVING BLEEDING FROM HEMMORROIDS WHEN STRAINING TO HAVE BM. TOPROL AND MIRALAX HELD FOR SALLIE BUT OTHER MEDICATIONS GIVEN WITH SIP OF WATER. WILL GIVE AFTER PROCEDURE. PT AOX4, ASSESSMENT PERFORMED, ULCER ON R INSIDE OF FOOT NOTED, PT PERFORMING DAILY HYGIENE WHEN LEAVING ROOM. NO OTHER NEEDS AT THIS TIME.
--- NOTE | 2020-11-05 08:30 | NUR ---
Since the patient may be needing homeless jail and resources, Studio Control Operator contacted Filomena at [facility]. She reports they provided assistance with securing housing in June. The patient secured a year lease and knows the landlord personally. Filomena reports the patient at times leaves his housing situation due to not getting along with other people. Filomena reports to contact her regarding the patient if he has questions regarding returning to his home or he can contact her directly. SW to meet with the patient to discuss the above information.
--- NOTE | 2020-11-05 09:12 | NUR ---
PT REPORTING PAIN 01/01, REQUESTED PAIN MEDICATION, GAVE PT DILAUDID AND TYLENOL. CALLED [facility] FOR TIME OF PROCEDURE, STATED SALLIE WOULD NOT BE UNTIL 1200 AND THAT PT COULD HAVE LILLY CRACKSHANNON AND JELLO AT CURRENT TIME. EDUCATED PT ON TIME OF PROCEDURE AND GIVEN LILLY BLANCHE AND JELLEffie.
--- NOTE | 2020-11-05 09:44 | NUR ---
[facility] NOTIFIED NURSING STAFF THAT AFTER 24 HOURS PT IS TECHNICALLY DISCHARGED FROM THEIR SERVICES, IF PT WAS STILL REQUIRING THEIR SERVICES WHEN PT IS MEDICALLY CLEARED WE CAN REQUEST THEIR SERVICES AGAIN.
--- NOTE | 2020-11-05 12:43 | NUR ---
PT BACK FROM [facility], LUNCH IN ROOM. ENTERED PT ROOM AND PT EATING LUNCH, HAS ONLY TAKEN A FEW BITES OF SALAD, GRILLED CHEESE, AND TOMATO SOUP. EDUCATED PT OF NPO STATUS AND WOULD CALL PHYSICIAN TO CLARIFY IF NPO STILL NECESSARY, PT REPLIED WITH "IM STILL GONNA EAT, JUST EAT SLOWLY". EDUCATED PT WITH EATING YOU CAN POSSIBLY DELAY A POSSIBLE HEART CATH IF NEEDED. NOTIFIED PHYSICIAN OF SITUATION.
--- NOTE | 2020-11-05 13:16 | NUR ---
AFTER VISITING PT AGAIN, PT HAD EATEN WHOLE LUNCH TRAY. EDUCATED LUNA BYRNES ON SITUATION.
--- NOTE | 2020-11-05 14:27 | NUR ---
since pt ate lunch, pt is not NPO. will be NPO at midnight if cardiac procedure is required. pt requested maude crackers and coffee, decaff coffee brought in with crackers. r ankle wound dressed with coban and 4x4's. no other needs at this time.
--- NOTE | 2020-11-05 16:01 | NUR ---
Vp Sales met with the patient to review the discharge plan and discuss his living situation. The patient reports that his landlard kicked him out of the home due to his landlord having legal issues and she is not a good landlord. He alleges her legal issues stem from drug issues. The patient was agreeable to trying [facility] once again. SARAI attempted to contact Filomena at [facility], she was gone for the day. SARAI informed the patient that he should contact Filomena as well. He was agreeable.
--- NOTE | 2020-11-05 18:07 | NUR ---
PT CURRENTLY OFF TELE, UNABLE TO FIND PT IN ROOM, SECURITY CALLED TO LOOK FOR PT, TECH ALSO LOOKING FOR PT IN HOSPITAL.
--- NOTE | 2020-11-05 18:10 | NUR ---
ONCOMING LICENSED WEIGHER NURSE SPOTTED PT OUTSIDE ED SMOKING, NOTIFIED SECURITY OF SITUATION.
--- NOTE | 2020-11-05 18:28 | NUR ---
PT BEING DISCHARGED AMA FOR LEAVING FACILITY. PHYSICIAN NOTIFIED OF SITUATION AND WORKING ON DISCHARGE PAPERWORK. PT UPSET ABOUT THIS
[2020-11-05] MEDS ORDERED: DOXYCYCLINE 10100 MG PO (18:30)
[2020-11-05] MEDS ORDERED: TOPROL XL 50MG50 MG PO (18:31)
[2020-11-05] MEDS ORDERED: ZESTRIL 20MG TA20 MG PO (18:31)
[2020-11-05] MEDS ORDERED: ASPIRIN 81M81 MG/TA2 PO (18:31)
[2020-11-05] MEDS ORDERED: FLOMAX 0.40.4 MG/CAP PO (18:31)
[2020-11-05] MEDS ORDERED: LASIX 40MG40 MG/4 ML PO (18:34)
[2020-11-05] MEDS ORDERED: HYDROCORTISONE30 G3 TP (18:35)
[2020-11-05] MEDS ORDERED: KLOR-CON M1515 MEQ PO (18:36)
[2020-11-05] MEDS ORDERED: *Potassium Replaceme MC (18:37)
--- NOTE | 2020-11-05 18:58 | NUR ---
pt removed his own iv while outside, telemetry removed from pt, gave pt sandwich box and pepsi, gave discharge med orders and health summary packet, pt left hospital, no other needs.
--- NOTE | 2020-11-06 08:35 | NUR ---
The patient left AMA in 11/05. Lia Mendoza RN, CM from [facility] contacted this Grant Manager regarding the patient. The patient visited the ED this day for care and left AMA from the ED as well. Lia would to be contacted if the patient return to the ED to ensure he gets to his follow up appointment. Lia states she left word with the [facility] ED as well to contact her. SARAI collaborated the above information with the ED SW.
== END 2020-11-05 19:00 | disposition left against medical advice (07) | DRG 670 ==
LOC: COL.ER 14:15 → SURG 18:25 → COL.ER 18:25 → SURG 18:25
PROVIDERS: Nurse Practitioner Primary Care; Student in an Organized Health Care Education/Training Program; Urology; ADMIT Hospitalist
PROC: 0TC78ZZ Extirpation of Matter from Left Ureter, Via Natural or Artificial Opening Endoscopic (ICD-10-PCS; principal; 2020-11-04 16:00)
DX: N13.2 Hydronephrosis with renal and ureteral calculous obstruction (principal); M19.90 Unspecified osteoarthritis, unspecified site; G40.909 Epilepsy, unspecified, not intractable, without status epilepticus; I10 Essential (primary) hypertension; K59.00 Constipation, unspecified; K64.9 Unspecified hemorrhoids; E11.621 Type 2 diabetes mellitus with foot ulcer; L97.519 Non-pressure chronic ulcer of other part of right foot with unspecified severity; R79.89 Other specified abnormal findings of blood chemistry; E87.5 Hyperkalemia; N17.9 Acute kidney failure, unspecified; D64.9 Anemia, unspecified; R91.1 Solitary pulmonary nodule; N28.1 Cyst of kidney, acquired; Z53.29 Procedure and treatment not carried out because of patient's decision for other reasons; Z20.822 Contact with and (suspected) exposure to COVID-19
CPT/HCPCS: 99223-AI; 99232-AI; A9500; C1769; G0378; J0360; J0690; J0696; J1100; J1170; J1650; J1940; J2405; J2550; J2704; J2785; J3010; J3370; J3475; J7030; J7050; Q9967

== ENCOUNTER 2021-01-20 12:59 | Emergency (ER) | payer MEDICARE, MEDICAID ==
[~2021-01-20] VITALS: Ht 180.3 cm; Wt 104.1 kg
[~2021-01-20 12:59] MED LIST changes: +*Potassium Replaceme MC; +ASPIRIN 81M81 MG/TA2 PO; +DOXYCYCLINE 10100 MG PO; +FLOMAX 0.40.4 MG/CAP PO; +HYDROCORTISONE30 G3 TP; +KLOR-CON M1515 MEQ PO; +LASIX 40MG40 MG/4 ML PO
[2021-01-20 13:00] VITALS: TEMP 98
[2021-01-20 14:01] VITALS: BP 169/103; PULSE 94
== END 2021-01-20 14:02 | disposition home or self-care (01) ==
LOC: COL.ER 12:59
DX: K42.9 Umbilical hernia without obstruction or gangrene (principal); E11.9 Type 2 diabetes mellitus without complications; I10 Essential (primary) hypertension; F17.210 Nicotine dependence, cigarettes, uncomplicated; Z79.899 Other long term (current) drug therapy; Z88.6 Allergy status to analgesic agent

== ENCOUNTER 2021-06-02 14:23 | Emergency (ER) | payer MEDICARE, MEDICAID ==
[~2021-06-02] VITALS: Ht 177.8 cm; Wt 95.5 kg
[2021-06-02 15:13] VITALS: TEMP 97.6
[2021-06-02 16:57] LABS: BASO % 0.3 % (0.0-2.0); EOS # 0.2 K/mm3 (0.0-0.7); EOS % 1.7 % (0.0-4.0); GRAN # 8.5 K/mm3 (1.4-6.5); GRAN % 80.6 % (42.2-75.2); HEMATOCRIT 40.6 % (42.0-52.0); HEMOGLOBIN 13.2 g/dl (13.5-18.0); LYMPH # 1.3 K/mm3 (1.2-3.4); LYMPH % 12.6 % (20.0-51.0); MEAN CELL VOLUME 89 fl (80.0-100.0); MEAN CORPUSCULAR HEMOGLOBIN 29 pg (27-31); MEAN CORPUSCULAR HGB CONC 33 g/dl (33.0-37.0); MEAN PLATELET VOLUME 9.6 fl (7.4-10.4); MONO # 0.5 K/mm3 (0.1-0.6); MONO % 4.5 % (1.7-9.3); PLATELET COUNT 314 K/mm3 (130-400); RED BLOOD COUNT 4.59 M/mm3 (4.20-5.60); REDCELL DISTRIBUTION WIDTH-CV 14.3 % (11.5-14.5)
[2021-06-02 17:14] LABS: ALBUMIN 3.7 gm/dL (3.5-5.0); BILIRUBIN,TOTAL 0.4 mg/dL (0.2-1.2); CALCIUM 8.8 mg/dL (8.4-10.2); CREATININE, serum 1.15 mg/dL (0.72-1.25); POTASSIUM 3.1 mmol/L (3.5-4.5); TOTAL PROTEIN 7.2 gm/dL (6.2-8.1)
[2021-06-02] MEDS ORDERED: NORCO 325 MG-51 TAB PO (19:05)
[2021-06-02 19:18] VITALS: BP 172/110; PULSE 87
== END 2021-06-02 19:38 | disposition home or self-care (01) ==
LOC: COL.ER 14:23
PROVIDERS: Personal Emergency Response Attendant
DX: K42.9 Umbilical hernia without obstruction or gangrene (principal); N28.1 Cyst of kidney, acquired; I10 Essential (primary) hypertension; E11.9 Type 2 diabetes mellitus without complications; F17.210 Nicotine dependence, cigarettes, uncomplicated; Z79.899 Other long term (current) drug therapy
CPT/HCPCS: J3010; J3360; J7030; Q9967

== ENCOUNTER 2021-11-14 10:53 | Emergency (ER) | payer MEDICARE, MEDICAID ==
[~2021-11-14] VITALS: Ht 180.3 cm; Wt 104.5 kg
[2021-11-14 10:58] VITALS: TEMP 98
[2021-11-14 11:33] VITALS: BP 178/92
[2021-11-14 11:57] VITALS: PULSE 72
== END 2021-11-14 11:58 | disposition home or self-care (01) ==
LOC: COL.ER 10:53
DX: K42.9 Umbilical hernia without obstruction or gangrene (principal); F17.200 Nicotine dependence, unspecified, uncomplicated; Z28.310 Unvaccinated for COVID-19

== ENCOUNTER 2022-02-08 19:44 | Emergency (ER) | payer MEDICARE, MEDICAID ==
[~2022-02-08] VITALS: Ht 180.3 cm; Wt 113.6 kg
[2022-02-08 19:51] VITALS: TEMP 98.1
[2022-02-08 20:12] LABS: BASO # 0.1 K/mm3 (0.0-0.2); BASO % 0.6 % (0.0-2.0); EOS # 0.6 K/mm3 (0.0-0.7); EOS % 4.9 % (0.0-4.0); GRAN # 7.5 K/mm3 (1.4-6.5); GRAN % 64.8 % (42.2-75.2); HEMATOCRIT 41.5 % (42.0-52.0); HEMOGLOBIN 13.7 g/dl (13.5-18.0); LYMPH # 2.6 K/mm3 (1.2-3.4); LYMPH % 22.5 % (20.0-51.0); MEAN CELL VOLUME 91 fl (80.0-100.0); MEAN CORPUSCULAR HEMOGLOBIN 30 pg (27-31); MEAN CORPUSCULAR HGB CONC 33 g/dl (33.0-37.0); MEAN PLATELET VOLUME 9.8 fl (7.4-10.4); MONO # 0.8 K/mm3 (0.1-0.6); MONO % 6.8 % (1.7-9.3); PLATELET COUNT 315 K/mm3 (130-400); RED BLOOD COUNT 4.57 M/mm3 (4.20-5.60); REDCELL DISTRIBUTION WIDTH-CV 14.7 % (11.5-14.5)
[2022-02-08 20:32] LABS: ALBUMIN 3.7 gm/dL (3.5-5.0); BILIRUBIN,TOTAL 0.2 mg/dL (0.2-1.2); CALCIUM 9.5 mg/dL (8.4-10.2); CREATININE, serum 0.93 mg/dL (0.72-1.25); TOTAL PROTEIN 7.2 gm/dL (6.2-8.1)
[2022-02-08 20:38] LABS: TROPONIN-I 0.038 ng/mL (0.00-0.033)
[2022-02-08] MEDS ORDERED: PRINIVIL20 MG PO (21:51)
[2022-02-08 22:06] VITALS: BP 158/82; PULSE 76
== END 2022-02-08 22:09 | disposition home or self-care (01) ==
LOC: COL.ER 19:44
PROVIDERS: Emergency Medicine
DX: I10 Essential (primary) hypertension (principal); Z28.310 Unvaccinated for COVID-19

== ENCOUNTER 2022-02-10 09:27 | Emergency (ER) | payer MEDICARE, MEDICAID ==
[~2022-02-10] VITALS: Ht 180.3 cm; Wt 113.6 kg
[2022-02-10 09:42] VITALS: TEMP 98.4
[2022-02-10 11:00] VITALS: BP 159/91; PULSE 73
== END 2022-02-10 11:00 | disposition home or self-care (01) ==
LOC: COL.ER 09:27
DX: I10 Essential (primary) hypertension (principal); Z28.310 Unvaccinated for COVID-19